=== PATIENT | male | born 1960 | race Two or more races ===

== ENCOUNTER → 2021-01-04 08:46 | Outpatient (REF) | payer OTHER, SELFPAY ==
--- NOTE | 2021-01-04 09:00 | CA_ITS ---
Acquisition Time: 2021-01-04 09:23:41 Total Exercise Time: 00:06:31 Test Indications: Chest Pain Medications: Protocol: PRANAY Max HR: 151 BPM 93% of Pred: 161 BPM Max BP: 216/106 mmHG Max Work Load: 7.7 METS Exercise stress test with exercise 6 min 31 sec of Pranay protocol, without anginal symptoms, without arrythmia, with hypertensive response to exercise, baseline BP 156/84 and maria m to 216/106, without EKG changes meeting criteria for ischemia. In recovery BP returned to baseline. He did not take his Lisinopril yet today. Test reviewed with Dr Epstein. Referred By: Brayden Muñoz Overread By: ANN WOLF
== END ==
LOC: HO.CARD 08:46
PROVIDERS: Visit Provider Physician Assistant
DX: R07.89 Other chest pain (principal)
CPT/HCPCS: 93017